=== PATIENT | male | born 1985 | race Caucasian/White ===

== ENCOUNTER 2016-07-18 09:29 | Emergency (ER) | payer SELFPAY ==
[~2016-07-18] VITALS: Ht 195.6 cm; Wt 127.0 kg
[2016-07-18 10:26] LABS: HEMOGLOBIN 15.4 g/dL (13.7-18.0)
[2016-07-18] MEDS ORDERED: SODIUM CHLORIDE 0.9% 1,000ML IVBOLUS ONE (10:30)
[2016-07-18] MEDS ORDERED: MORPHINE SULFATE 4 MG/ML, 1ML IVPush PRN (10:30)
[2016-07-18] MEDS ORDERED: SODIUM CHLORIDE FLUSH 10ML SYR IVF ONE (10:30)
[2016-07-18] MEDS ORDERED: FAMOTIDINE 20 MG/2 ML IVP ONE (10:30)
[2016-07-18] MEDS ORDERED: ONDANSETRON 2MG/ML, 2ML IVPush ONE (10:30)
[2016-07-18 10:39] LABS: ASPARTATE AMINO TRANSFERASE 16 U/L (15-37); BLOOD UREA NITROGEN 16 mg/dL (7-18)
[2016-07-18] MEDS ORDERED: MORPHINE SULFATE 4 MG/ML, 1ML ONE (10:43)
[2016-07-18] MEDS ORDERED: FAMOTIDINE 20 MG/2 ML ONE (10:44)
[2016-07-18] MEDS ORDERED: ONDANSETRON 2MG/ML, 2ML ONE (10:44)
[2016-07-18 12:20] VITALS: BP 111/50
== END 2016-07-18 12:23 | disposition home or self-care (01) ==
LOC: ED 11:18
DX: R10.11 Right upper quadrant pain (principal); R11.0 Nausea
CPT/HCPCS: 36415; 76700; 80053; 81003; 83690; 85025; 96361; 96374; 96375; 99285; J2405; J7030; S0028